=== PATIENT | male | born 1985 | race African-American/Black ===

== ENCOUNTER 2023-10-17 14:49 | Emergency (ER) | payer MEDICAID ==
[~2023-10-17] VITALS: Ht 185.4 cm; Wt 68.0 kg
[2023-10-17 15:04] VITALS: BP 91/58; PULSE 88; RESP 16; TEMP 97.5; O2SAT 99
[2023-10-17] MEDS ORDERED: TETANUS, DIPHTHERIA, PERTUSSIS VAC/PF 0.5ML (>10YR OLD) IM ONE (15:15)
[2023-10-17] MEDS ORDERED: LIDOCAINE HCL/PF 1% 10 MG/ML 5ML VIAL INFIL ONE (15:15)
[2023-10-17] MEDS ORDERED: BACITRACIN ZINC OINT UDPKT TOP ONE (15:15)
[2023-10-17] MEDS ORDERED: SULF1TAB48 MT ×2 (18:27→18:31)
[2023-10-17] MEDS ORDERED: CEPH500C2 MT ×2 (18:27→18:31)
[2023-10-17] MEDS ORDERED: HIBIL TP (18:32)
== END 2023-10-17 19:17 | disposition home or self-care (01) ==
LOC: ER 14:49
DX: L02.411 Cutaneous abscess of right axilla (principal)
CPT/HCPCS: 10060; 99283; Z7610 ×4

== ENCOUNTER 2023-10-28 19:07 | Emergency (ER) | payer MEDICAID ==
[~2023-10-28] VITALS: Ht 182.9 cm; Wt 62.7 kg
[~2023-10-28 19:07] MED LIST: CEPH500C2 MT; HIBIL TP; SULF1TAB48 MT
[2023-10-28 21:27] VITALS: BP 115/59; PULSE 109; RESP 16; TEMP 98.2; O2SAT 100
[2023-10-28] MEDS ORDERED: BACITRACIN ZINC OINT UDPKT TOP ONE (21:30)
[2023-10-28] MEDS ORDERED: LIDOCAINE HCL/PF 1% 10 MG/ML 5ML VIAL INFIL ONE (21:30)
[2023-10-28] MEDS ORDERED: KETOROLAC 15MG/ML VIAL IM ONE (21:30)
[2023-10-28] MEDS ORDERED: CLIN-194 MT (23:50)
== END 2023-10-29 01:41 | disposition home or self-care (01) ==
LOC: ER 19:07
DX: L02.413 Cutaneous abscess of right upper limb (principal)
CPT/HCPCS: 10060; 99282; 99283

== ENCOUNTER 2023-12-23 18:11 | Emergency (ER) | payer MEDICAID ==
[~2023-12-23] VITALS: Ht 185.4 cm; Wt 78.0 kg
[~2023-12-23 18:11] MED LIST changes: +CLIN-194 MT
[2023-12-23 18:15] VITALS: O2SAT 97
[2023-12-23 21:55] LABS: BASOPHILS % 0.3 % (0.0-2.0); EOSINOPHILS % 2.2 % (0.0-5.0); HEMATOCRIT. 40.8 % (42.0-52.0); LYMPHOCYTES % 40.9 % (20.0-50.0); MEAN CORPUSCULAR HEMOGLOBIN 33.1 pg (28.0-32.0); MEAN CORPUSCULAR HGB CONC 34.2 g/dL (31.0-37.0); MEAN CORPUSCULAR VOLUME 96.7 fL (80.0-94.0); MEAN PLATELET VOLUME 7.4 fl (7.4-10.4); MONOCYTES % 8.3 % (2.0-8.0); NEUTROPHILS % 48.3 % (40.0-76.0); PLATELET 208 x1000/uL (130-400); RED BLOOD CELL COUNT 4.22 mill/uL (4.7-6.1); WHITE BLOOD COUNT 5.7 x1000/uL (4.5-11.0)
[2023-12-23 22:14] LABS: ACETAMINOPHEN < 2 ug/mL (10-30); ALANINE AMINOTRANSFERASE 22 IU/L (10-49); ALBUMIN 3.7 g/dL (3.2-4.8); ASPARTATE AMINOTRANSFERASE 18 IU/L (<34); BILIRUBIN TOTAL 0.3 mg/dL (0.1-1.0); CALCIUM 8.7 mg/dL (8.7-10.4); CARBON DIOXIDE 30 mEq/L (21-32); CHLORIDE 111 mEq/L (98-107); GLUCOSE 92 mg/dL (70-105); POTASSIUM 3.9 mEq/L (3.5-5.1); PROTEIN TOTAL 6.3 g/dL (6.0-8.3); SODIUM 144 mEq/L (136-145); UREA NITROGEN BLOOD 7 mg/dL (9-23)
[2023-12-23 22:20] LABS: ETHANOL BLOOD < 10 mg/dL (<10)
[2023-12-24 08:55] LABS: *AMPHETAMINES SCREEN URINE PRESUMPTIVE POSITIVE (NEGATIVE); *BARBITURATES SCREEN URINE NEGATIVE (NEGATIVE); *BENZODIAZEPINES SCREEN URINE NEGATIVE (NEGATIVE); *COCAINE SCREEN URINE NEGATIVE (NEGATIVE); CANNABINOID URINE SCREEN NEGATIVE (NEGATIVE); ECSTASY MDMA SCREEN URINE NEGATIVE (NEGATIVE); METHADONE URINE SCREEN Neg (NEGATIVE); OPIATES URINE SCREEN NEGATIVE (NEGATIVE); PHENCYCLIDINE URINE SCREEN NEGATIVE (NEGATIVE)
[2023-12-24] MEDS: QUETIAPINE FUMARATE 50MG TABLET PO SCH (15:00)
[2023-12-24 20:47] VITALS: BP 100/54; PULSE 73; RESP 18; TEMP 98.6
== END 2023-12-24 22:03 ==
LOC: ER 18:11
DX: R45.850 Homicidal ideations (principal); R45.851 Suicidal ideations; Z20.822 Contact with and (suspected) exposure to COVID-19; Z86.59 Personal history of other mental and behavioral disorders
CPT/HCPCS: 80053; 80307; 80329; 80320; 85025; 36415; 99285; 80305; 87426; Z7610; G0480